=== PATIENT | female | born 1950 | race Caucasian/White ===

== ENCOUNTER 2022-05-16 09:37 | Outpatient (CLI) | payer MEDICARE, OTHER, SELFPAY ==
[2022-05-16 14:51] LABS: SARS PCR* Negative SARS-CoV-2 (Negative)
== END 2022-05-16 09:38 | disposition home or self-care (01) ==
LOC: FBOREF 09:37
PROVIDERS: PCP Family Medicine; Visit Provider Orthopaedic Surgery Sports Medicine
DX: Z20.822 Contact with and (suspected) exposure to COVID-19 (principal)
CPT/HCPCS: 87635

== ENCOUNTER 2022-05-17 07:56 | Day surgery (SDC) | payer MEDICARE, OTHER, SELFPAY ==
[2022-05-16] MEDS: LACTATED RINGERS 1000 ML 1,000 ML 100 ML IV (09:00)
[2022-05-16] MEDS: MIDAZOLAM HCL 1 MG/ML inj IVP (09:22)
[2022-05-17] VITALS (16 sets, daily range): BP systolic 102–130; BP diastolic 50–77; PULSE 60–80; RESP 14–16; TEMP 36.1–36.8; O2SAT 92–97; BMI 36.3
[2022-05-17] MEDS: fentaNYL 100 MCG/2 ML inj IVP (09:22)
--- NOTE | 2022-05-17 09:25 | W.PM.NB ---
Nerve Block Nerve Block Time Seen by Provider: 09:25 Date Seen: 05/17/22 Type of block requested by surgeon for post-operative analgesia: interscalene Side: right Time out performed: Yes Verification of patient name: Yes Verification of date of : Yes Site marking: site marked Name of person performing procedure: Girish Continuous monitoring Was continuous monitoring of O2 sat, B/P, information security, recorded every 15 minutes?: Yes Procedure Checklist: sterile prep, needles and gloves Ultrasound guided. Images saved: Yes Medications given in 5ml increments after negative aspiration: Marcaine %: 25 mL: 20 Needle gauge: 22 Decadron (mg): 10 Precedex (mcg): 25 Patient tolerated procedure well: Yes Block Charges Block Charge (with Pro Fee): Brachial Plexus Use of Ultrasound Machine for Block: Yes- US Guidance/pain block
[2022-05-17] MEDS: CEFAZOLIN 2 GM INJ IVP (09:58)
--- NOTE | 2022-05-17 12:09 | PM.ORPRC ---
Procedure Note Date of procedure: 05/17/22 Procedure: PREOPERATIVE DIAGNOSES: 1. Right shoulder rotator cuff tear, full-thickness supraspinatus and upper border subscapularis 2. Right shoulder subacromial impingement syndrome. POSTOPERATIVE DIAGNOSES: 1. Right shoulder rotator cuff tear - supraspinatus full breath and anterior portion infraspinatus as well as upper border subscapularis 2. Right shoulder labral degenerative fraying and tearing 3. 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 Right shoulder remote long head of biceps rupture 5. Right shoulder subacromial impingement syndrome. NAME OF OPERATION: 1. Right shoulder arthroscopic rotator cuff repair (x1 anchor subscapularis; x4 anchor supra/infra speed bridge) 2. Right shoulder extensive glenohumeral debridement 3. Right shoulder arthroscopic bursectomy, subacromial decompression/partial acromioplasty. SURGEON: Ayo Van MD MANUFACTURING ASSEMBLER: Thierry Collazo PA-C. Of note, a skilled railway yard assistant was critical for this case to aide in patient positioning, suture manipulation, arm positioning, instrument positioning, and closure. ANESTHESIA: General plus preoperative supraclavicular block. EBL: 25 mL IMPLANTS: Arthrex 4.75 mm BioComposite SwiveLock suture anchor (x2); 5.5 mm BioComposite SwiveLock suture anchor (x3) COMPLICATIONS: None evident INDICATIONS: The patient is a pleasant, 71-year-old female who has experienced right shoulder pain that has been increasing in recent time. Physical exam and imaging were consistent with a rotator cuff tear. Given their findings, as well as the weakness and pain, and inadequate response to nonoperative management, recommendation was made for surgery. FINDINGS: Exam under anesthesia revealed stable shoulder with excellent range of motion. The diagnostic arthroscopy revealed grade 2-3 chondromalacia humeral head with some loose chondral flaps. The Subscapularis tendon was torn full-thickness from its upper border with moderate retraction. The long head of the biceps tendon was not present in the shoulder consistent with remote long head of the biceps rupture. The superior rotator cuff tendon was found to be torn full-thickness through the entire breath of the supraspinatus and anterior portion infraspinatus as well. The labrum was degeneratively frayed in the anterior and superior aspects. No loose bodies were identified within the pouch or subscapularis recess. PROCEDURE: Following a thorough discussion of risks, benefits, and alternatives, consent was obtained and the right shoulder was marked. The patient was brought to the operating room and placed supine on the operating table. Induction of anesthesia was completed after preoperative supraclavicular block was administered in preop holding. Appropriate time out was performed identifying proper patient, site, and procedure. 2 g IV Ancef was administered within 1 hour of incision preoperatively. The right upper extremity was prepped and draped in the appropriate sterile fashion using ChloraPrep prep. This was after the patient was positioned in the beach chair with their head in neutral alignment and all bony prominences well padded. The shoulder was insufflated with 20mL of normal saline via an 18g spinal needle from a posterior approach. An 11 blade skin incision allowed a blunt trochar to be inserted and diagnostic arthroscopy to be performed with the findings as noted above. An anterior portal was established with an outside in technique. This allowed the probe to be inserted and confirm the diagnostic arthroscopic findings. The shaver was then inserted and allowed debridement of the anterior and superior labrum as well as the biceps stump, and humeral chondral loose flaps. Following this, the upper border subscapularis was repaired after debriding the lesser tuberosity with the shaver and Buhl cautery. Subscapularis was captured in horizontal mattress fashion with a fiber tape suture. The tails were brought to a single anchor in the lesser tuberosity with excellent reapproximation of the subscap tendon and good excursion/tension. Thereafter, the subacromial space was entered. Here, a complete bursectomy and partial acromioplasty/subacromial decompression was performed with a combination of radiofrequency ablator, the shaver, and a 5.5 mm bur. Further inspection of the supraspinatus and infraspinatus rotator cuff was performed. This identified the tear as noted above. The margins of the tear were debrided, and the greater tuberosity was debrided with a combination of the apollo cautery, shaver, and bur on reverse setting. After gentle decortication, a speed bridge configuration with a medial jennie was engaged. 2 medial anchors were placed and the sutures were passed with a fiber link. The eyelet suture tails were then retrieved and tied and cinched down for the medial jennie purpose. A tail from each of the medial row anchor FiberTapes were then brought to a lateral row anchor along with 1 of the tails from the medial jennie. Excellent reapproximation of the tissue to the greater tuberosity was achieved with broad footprint compression. In addition, the eyelet sutures were utilized on both posterior and anterior lateral row anchors for small dog years as these were passed and tied separately. Prior to anchor regional dedicated truck driver removal, the eyelet sutures were tugged on for each anchor and found that the anchor had excellent stability within the bone. The shoulder was placed through range of motion and found to be stable. The rotator cuff was re-probed and found to be stable. Instruments were removed. Excess fluid was drained, closure performed with 4-0 Monocryl and Steri-Strips. Dressings were applied. Sling was applied. The patient was awoken from anesthesia and transferred to the PACU in stable condition. A skilled railway yard assistant was critical for this case to aid in patient positioning, limb positioning, skill to manipulate arthroscopic instruments and camera, suture management, patient safety, and closure. PLAN: 1. Elbow, forearm, wrist and digit range of motion as tolerated. 2. Encouraged ice. 3. Percocet for pain as needed. 4. Sling at all times except for ROM and showering. 5. Follow up with PA visit in 1-2 weeks for wound check. Initiate physical therapy following that visit for passive range of motion. Initiate active assisted range of motion at 4-6 weeks. May do pendulums now.
--- NOTE | 2022-05-17 12:36 | W.ANESCHARGE ---
Anesthesia Charges Start Date/Time Anesthesia Start Date: 05/17/22 Anesthesia Start Time: 09:41 Stop Date/Time Anesthesia Stop Date: 05/17/22 Anesthesia Stop Time: 12:26 Summary Emergency: No Extremes of Age: Over [id number]-CPT [id number]
--- NOTE | 2022-05-17 13:30 | W.ANESCHARGE ---
Anesthesia Charges Start Date/Time Anesthesia Start Date: 05/17/22 Anesthesia Start Time: 09:41 Stop Date/Time Anesthesia Stop Date: 05/17/22 Anesthesia Stop Time: 12:26 Summary Emergency: No
== END 2022-05-17 15:05 | disposition home or self-care (01) ==
PROVIDERS: PCP Family Medicine; Visit Provider Orthopaedic Surgery Sports Medicine
PROC: (CPT 29805; principal; 2022-05-17 10:00)
DX: M75.121 Complete rotator cuff tear or rupture of right shoulder, not specified as traumatic (principal); M75.41 Impingement syndrome of right shoulder; M94.211 Chondromalacia, right shoulder; S43.431A Superior glenoid labrum lesion of right shoulder, initial encounter
CPT/HCPCS: 29827; 29826; 29823; 01630; 64415; 76942; 99100; C1713; J0171; J0330; J0690; J1100; J2250; J2370; J2405; J2704; J3010; J3490; J7120